=== PATIENT | female | born 1965 | race Hispanic/Latino ===

== ENCOUNTER 2021-08-29 07:26 | Emergency (ER) | payer SELFPAY ==
[2021-08-29] VITALS (17 sets, daily range): BP systolic 141–173; BP diastolic 71–95; PULSE 52–74; RESP 18; TEMP 36.7; O2SAT 97–99; BMI 30.7
--- NOTE | 2021-08-29 07:47 | DI.RAD.S_ITS ---
PROCEDURE: XR CHEST 1V INDICATIONS: lightheaded, flank pain TECHNIQUE: One view of the chest was acquired. COMPARISON: None. FINDINGS: Surgical changes and devices: None. Lungs and pleura: Lungs are clear. No pleural effusions or pneumothorax. Mediastinum: Mediastinal contours appear normal. Mild cardiomegaly. Bones and chest wall: No suspicious bony lesions. Overlying soft tissues appear unremarkable. IMPRESSION: Mild cardiomegaly. Dictated by: Ernesto Cueto M.D. on 08/29/2021 at 8:14 Approved by: Ernesto Cueto M.D. on 08/29/2021 at 8:15
--- NOTE | 2021-08-29 07:51 | ED.ABDPAIN ---
HPI - Abdominal Pain General Chief Complaint: Dizziness Stated Complaint: Dizzy, sweaty, pain in back Time Seen by Provider: 08/29/21 07:29 Source: patient Mode of arrival: Ambulatory Limitations: no limitations History of Present Illness HPI narrative: This is a 56-year-old female comes emergency department with complaint of left flank pain that wraps around to the right front. Patient states that it started yesterday she took some Aleve but states it was not as intense. Today she was at work she felt like she needed to have a bowel movement and when she went to the bathroom she did have 1 she states it was normal at was not black or bloody. Patient states that when she went to get up she felt lightheaded sort of dizzy she got a little sweaty. She states she did not pass out. But did sit down on the floor. She denies any chest pain or pressure. She denies any shortness of breath. She states the left flank pain is become significantly more intense after her bowel movement. She noted that her urine was quite dark. She denies any dysuria urgency or frequency. Patient states that the pain also seems to be in her left buttock and when she tries to straight her leg completely it makes her symptoms worse. Patient denies similar symptoms in the past. She states she has a history of hypertension. She denies any other known medical issues. She has had her thyroid removed in a in the past. No tobacco, no alcohol or illicit. Patient was at work today at [employer]. Related Data Previous Rx's Medication Instructions Recorded cyclobenzaprine 10 mg tablet 10 mg PO TID PRN #10 tab 08/29/21 Allergies Allergy/AdvReac Type Severity Reaction Status Date / Time No Known Drug Allergies Allergy Verified 08/29/21 08:18 Review of Systems Review of Systems ROS Unobtainable: All systems reviewed & are unremarkable except as noted in HPI and below Patient History Social History Smoking Status: Never smoker Exam Narrative Exam Narrative: GENERAL: Alert and oriented x three, female in mild distress. HEENT: Head normocephalic, atraumatic, EOMI, pupils reactive, face symmetric, moist mucous membranes NECK: Supple, full range of motion CARDIOVASCULAR: Regular rate and rhythm without murmurs, rubs or gallops. RESPIRATORY: Breath sounds equal bilaterally, no wheezes rales or rhonchi. ABDOMEN: Soft, nontender. Normoactive bowel sounds all 4 quadrants. No guarding or rebound, rigidity, no mass, no bruit. : No CVA tenderness BACK: No cervical, thoracic or lumbar vertebral point tenderness. Patient has mildly decreased range of motion. Patient is tender in the left piriformis she has increased pain with sitting up and rotating off the bed and straightening her leg. Muscle strength is 5/5 in lower extremities, DTRs are 2/4 and lower extremities. Dorsalis pedis and tibialis pulses are 2+ and lower extremities. Sensation is intact in the lower extremities. EXTREMITIES: Normal range of motion, no edema. Neurovascularly intact NEUROLOGICAL: Cranial nerves II through XII grossly intact. Moving all extremities SKIN: Warm, dry, no petechiae, no rashes or lesions. Initial Vital Signs Initial Vital Signs: Vital Signs Pulse Rate 74 08/29/21 07:37 Pulse Oximetry 98 08/29/21 07:37 Course Orders Ordered: Discontinued Medications Sodium Chloride (Normal Saline 0.9%) 1,000 mls @ 1,000 mls/hr IV BOLUS ONE Stop: 08/29/21 08:45 Last Infusion: 08/29/21 09:51 Dose: 0 mls/hr Documented by: Admin: 08/29/21 08:18 Dose: 1,000 mls/hr Documented by: AARON Ketorolac Tromethamine (Ketorolac 30 Mg/Ml Vial) 15 mg IV NOW ONE Stop: 08/29/21 07:48 Last Admin: 08/29/21 08:19 Dose: 15 mg Documented by: AARON Ondansetron HCl (Ondansetron 4 Mg/2 Ml Inj) 4 mg IV Q6HR PRN PRN Reason: Nausea And Vomiting Last Admin: 08/29/21 08:19 Dose: 4 mg Documented by: AARON Reevaluation(s) Reevaluation #1: 56-year-old female on recheck patient's symptoms completely resolved with Toradol she feels significantly better. Reviewed her labs and imaging today. Because she did have some EKG changes and felt a little sweaty and lightheaded a repeat troponin was included. Time: 09:50 Vital Signs Vital signs: Vital Signs - 8 hr 08/29/21 07:37 08/29/21 07:38 08/29/21 07:48 Temperature 98.0 F Pulse Rate 74 72 72 Respiratory Rate 18 Blood Pressure 173/91 H 173/91 H Pulse Oximetry 98 98 98 08/29/21 07:52 08/29/21 08:04 08/29/21 08:05 Temperature Pulse Rate 61 67 66 Respiratory Rate Blood Pressure 141/87 H 163/95 H Pulse Oximetry 99 97 98 08/29/21 08:30 08/29/21 08:31 Temperature Pulse Rate 57 L 60 Respiratory Rate Blood Pressure 142/71 H Pulse Oximetry 98 97 MDM - Abdominal Pain Lab Data Result diagrams: 08/29/21 07:49 08/29/21 07:49 Labs: Lab Results 08/29/21 08/29/21 08/29/21 Range/Units 07:49 07:49 07:49 WBC 4.2 L (4.5-11.0) X10^3/uL RBC 5.98 H (4.0-5.2) X10^6/uL Hgb 13.1 (12.0-16.0) g/dL Hct 41.7 (36-46) % MCV 69.7 L (80-100) fL MCH 22.0 L (26-34) PG MCHC 31.5 (30-36) % RDW 14.5 (11.6-14.8) % Plt Count 271 (150-400) X10^3/uL Neut % (Auto) 63.9 (50-75) % Lymph % (Auto) 25.4 (25-40) % Gates % (Auto) 6.7 (3-14) % Eos % (Auto) 3.5 (2-4) % Baso % (Auto) 0.5 (0-2) % Neut # (Auto) 2700 (9334-7091) /uL Lymph # (Auto) 1100 (6065-5329) /uL Gates # (Auto) 300 (0-900) /uL Eos # (Auto) 100 (0-450) /uL Baso # (Auto) 0 (0-100) /uL RBC Morphology Not Reportable Hypochromasia 1+ H Microcytosis 1+ H Sodium 141 (137-145) mmol/L Potassium 3.8 (3.4-5.1) mmol/L Chloride 104 (98-107) mmol/L Carbon Dioxide 28 (22-32) mmol/L BUN 14 (7-17) mg/dL Creatinine 0.61 (0.52-1.04) mg/dL Estimated GFR > 60.0 (>60) mL/min BUN/Creatinine Ratio 23.0 H (6-22) Glucose 94 (70-100) mg/dL Calcium 9.3 (8.4-10.2) mg/dL Total Bilirubin 0.3 (0.2-1.3) mg/dL AST 23 (14-36) IU/L ALT 17 (<35) IU/L Alkaline Phosphatase 110 (38-126) U/L Troponin I < 0.012 (0.01-0.034) ng/mL Total Protein 7.2 (6.3-8.2) g/dL Albumin 4.3 (3.5-5.0) g/dL Globulin 2.9 (1.7-4.1) g/dL Albumin/Globulin Ratio 1.5 (1.0-2.8) Lipase 106 (23-300) U/L 08/29/21 Range/Units 09:55 WBC (4.5-11.0) X10^3/uL RBC (4.0-5.2) X10^6/uL Hgb (12.0-16.0) g/dL Hct (36-46) % MCV (80-100) fL MCH (26-34) PG MCHC (30-36) % RDW (11.6-14.8) % Plt Count (150-400) X10^3/uL Neut % (Auto) (50-75) % Lymph % (Auto) (25-40) % Gates % (Auto) (3-14) % Eos % (Auto) (2-4) % Baso % (Auto) (0-2) % Neut # (Auto) (9135-7490) /uL Lymph # (Auto) (2714-3877) /uL Gates # (Auto) (0-900) /uL Eos # (Auto) (0-450) /uL Baso # (Auto) (0-100) /uL RBC Morphology Hypochromasia Microcytosis Sodium (137-145) mmol/L Potassium (3.4-5.1) mmol/L Chloride (98-107) mmol/L Carbon Dioxide (22-32) mmol/L BUN (7-17) mg/dL Creatinine (0.52-1.04) mg/dL Estimated GFR (>60) mL/min BUN/Creatinine Ratio (6-22) Glucose (70-100) mg/dL Calcium (8.4-10.2) mg/dL Total Bilirubin (0.2-1.3) mg/dL AST (14-36) IU/L ALT (<35) IU/L Alkaline Phosphatase (38-126) U/L Troponin I < 0.012 (0.01-0.034) ng/mL Total Protein (6.3-8.2) g/dL Albumin (3.5-5.0) g/dL Globulin (1.7-4.1) g/dL Albumin/Globulin Ratio (1.0-2.8) Lipase (23-300) U/L Point of care testing: Urine Dip Bedside Urine Glucose Negative Bedside Urine Bilirubin - Negative Bedside Urine Ketone - Negative Urine Specific [place] 1.015 Bedside Urine Occult Blood - Negative Bedside Urine pH 7.0 Bedside Urine Protein - Negative Bedside Urine Urobilinogen - Negative Bedside Urine Nitrite - Negative Bedside Urine Leukocytes - Negative Esterase Imaging Data CT scan - abdomen/pelvis: Radiologist's Impression: [address] [id number] Scan ReportSigned Patient: Shaye Lowry R#: [id number]: 1965Acct:[id number]/Sex: 56 / FDate of Service: 08/29/21Loc: EDAccession Number: [id number] Procedure: CT kidney ureter bladder (KUB) Ordering Provider: Katharine Nova D.O. PROCEDURE: CT KIDNEY URETER BLADDER (KUB) INDICATIONS: left flank pain, hip pain TECHNIQUE: Axial sections were acquired from the lung bases to the pubic symphysis. Coronal and sagittal reformats were performed. For radiation dose reduction, the following was used: automated exposure control, adjustment of mA and/or kV according to patient size. COMPARISON: [facility], CR, XR CHEST 1V, 08/29/2021, 7:52. FINDINGS: Image quality: Excellent. Lung bases: Unremarkable. Heart: Mild cardiomegaly. URINARY: Right Kidney: No stones or hydronephrosis. Right Ureter: No hydroureter. Left Kidney: No stones or hydronephrosis. Left Ureter: No hydroureter. Bladder: Normal wall thickness. No stones. ABDOMEN: Liver: Unremarkable. Gallbladder: Unremarkable. Biliary ducts: Unremarkable. Pancreas: Unremarkable. Spleen: Unremarkable. Adrenal Glands: Unremarkable. Stomach and Bowel: Low rectal surgical al. Distal rectal wall thickening. Fatty change in the wall of the cecum, likely representing sequelae of a inflammation. Peritoneum: No abnormal intraperitoneal fluid. No free air. Ventral Wall: No hernia. Abdominal Nodes: No enlarged retroperitoneal or mesenteric lymph nodes. Vessels: Aorta and inferior vena cava are normal in size. PELVIS: Pelvic Organs: Unremarkable. Pelvic Nodes: Unremarkable. Miscellaneous: No inguinal hernias are seen. Bones: No lytic or blastic bony lesions. No compression fractures. Mild lumbar degenerative change. IMPRESSION: 1. No evidence of renal stone, ureteral stone, or hydronephrosis. 2. Low rectal surgical al, diffuse rectal wall thickening. 3. No evidence of acute abdominal process. Dictated by: Ernesto Cueto M.D. on 08/29/2021 at 8:09 Approved by: Ernesto Cueto M.D. on 08/29/2021 at 8:14 Chest x-ray: Radiologist's Impression: [address] [id number] ReportSigned Patient: Shaye Lowry VMR#: [id number]: 1965Acct:[id number]/Sex: 56 / FDate of Service: 08/29/21Loc: EDAccession Number: [id number] Procedure: XR chest 1V Ordering Provider: Katharine Nova D.O. PROCEDURE: XR CHEST 1V INDICATIONS: lightheaded, flank pain TECHNIQUE: One view of the chest was acquired. COMPARISON: None. FINDINGS: Surgical changes and devices: None. Lungs and pleura: Lungs are clear. No pleural effusions or pneumothorax. Mediastinum: Mediastinal contours appear normal. Mild cardiomegaly. Bones and chest wall: No suspicious bony lesions. Overlying soft tissues appear unremarkable. IMPRESSION: Mild cardiomegaly. Dictated by: Ernesto Cueto M.D. on 08/29/2021 at 8:14 Approved by: Ernesto Cueto M.D. on 08/29/2021 at 8:15 ECG Data Attestation: I personally reviewed and interpreted this ECG as follows: Prior ECG tracings: not available for review Interpretation: Sinus rhythm, T-wave abnormality, patient has a rate of 61 CO 148, QRS 86 and QTC of 420. T-waves do appear changed at V2 through V5. Patient does not have any priors available. EKG shows rate of 61 CO 148 QRS 86 and QTC of 420. Continued T-wave changes with no new changes from prior today. MDM Narrative Medical decision making narrative: This is a 56-year-old female comes in with complaint of left back pain that after further discussion is more buttock pain radiating downwards that is worsened with movement. Patient did get dizzy sort of lightheaded a little bit sweaty as she was getting up off the toilet. She had a normal bowel movement at that time. Patient's EKG shows some nonspecific changes she has never had any chest pain or shortness of breath on her symptoms were significantly improved with Toradol. She has good pulses bilaterally, no pulsatile mass or bruit. Patient troponin x2 is negative and she feels significantly better here in the department. She did have CT abdomen pelvis as well as chest x-ray and her other labs appear to be reassuring. Patient does have follow-up in [place] and does have a crm business analyst there that she can follow-up with, she was encouraged to return if she has any new chest pain, shortness of breath or other changes. Discharge Plan Departure Patient Disposition: Home Clinical Impression: Acute left-sided back pain Instructions: DI for Back Pain With Sciatica Activity Restrictions/Additional Instructions: Your labs and imaging today are reassuring but your EKGs do show some atypical findings. I would recommend follow-up with primary care in [place] for stress testing at some time. A copy of your EKGs are included. Your CT imaging also shows some rectal thickening if you have not had a colonoscopy in the last several years you should have one performed. Included is referral for General surgery for colonoscopy. Your exam findings today do seem most consistent with muscular cause of her symptoms. You may take Tylenol up to a 1000 mg and or ibuprofen up to 800 every 8 hours. You may also take a muscle relaxer in addition. This medication can make you sleepy so do not drive, perform hazardous activities or make any major decisions while taking this. [facility] Return for new or worsening symptoms, lightheadedness or passing out, sweatiness, new chest pain or shortness of breath, persistent nausea or vomiting, new numbness, tingling or weakness in her extremities, loss of bowel or bladder control or other new or concerning symptoms. Prescriptions: New cyclobenzaprine 10 mg tablet 10 mg PO TID PRN (Reason: muscle spasm) Qty: 10 RF: 0
--- NOTE | 2021-08-29 07:58 | DI.CT.S_ITS ---
PROCEDURE: CT KIDNEY URETER BLADDER (KUB) INDICATIONS: left flank pain, hip pain TECHNIQUE: Axial sections were acquired from the lung bases to the pubic symphysis. Coronal and sagittal reformats were performed. For radiation dose reduction, the following was used: automated exposure control, adjustment of mA and/or kV according to patient size. COMPARISON: [facility], CR, XR CHEST 1V, 08/29/2021, 7:52. FINDINGS: Image quality: Excellent. Lung bases: Unremarkable. Heart: Mild cardiomegaly. URINARY: Right Kidney: No stones or hydronephrosis. Right Ureter: No hydroureter. Left Kidney: No stones or hydronephrosis. Left Ureter: No hydroureter. Bladder: Normal wall thickness. No stones. ABDOMEN: Liver: Unremarkable. Gallbladder: Unremarkable. Biliary ducts: Unremarkable. Pancreas: Unremarkable. Spleen: Unremarkable. Adrenal Glands: Unremarkable. Stomach and Bowel: Low rectal surgical al. Distal rectal wall thickening. Fatty change in the wall of the cecum, likely representing sequelae of a inflammation. Peritoneum: No abnormal intraperitoneal fluid. No free air. Ventral Wall: No hernia. Abdominal Nodes: No enlarged retroperitoneal or mesenteric lymph nodes. Vessels: Aorta and inferior vena cava are normal in size. PELVIS: Pelvic Organs: Unremarkable. Pelvic Nodes: Unremarkable. Miscellaneous: No inguinal hernias are seen. Bones: No lytic or blastic bony lesions. No compression fractures. Mild lumbar degenerative change. IMPRESSION: 1. No evidence of renal stone, ureteral stone, or hydronephrosis. 2. Low rectal surgical al, diffuse rectal wall thickening. 3. No evidence of acute abdominal process. Dictated by: Ernesto Cueto M.D. on 08/29/2021 at 8:09 Approved by: Ernesto Cueto M.D. on 08/29/2021 at 8:14
[2021-08-29] MEDS: SODIUM CHLORIDE 0.9% 1,000 ML 1000 ML IV (08:18)
[2021-08-29] MEDS: KETOROLAC 30 MG/ML VIAL 15 MG IV (08:19)
[2021-08-29] MEDS: ONDANSETRON 4 MG/2 ML INJ IV (08:19)
[2021-08-29 08:59] LABS: Alanine Aminotransferase 17 IU/L (<35); Albumin 4.3 g/dL (3.5-5.0); Albumin Globulin Ratio 1.5 (1.0-2.8); Alkaline Phosphatase 110 U/L (38-126); Aspartate Aminotransferase 23 IU/L (14-36); Bilirubin Total 0.3 mg/dL (0.2-1.3); Blood Urea Nitrogen 14 mg/dL (7-17); Calcium 9.3 mg/dL (8.4-10.2); Carbon Dioxide 28 mmol/L (22-32); Chloride 104 mmol/L (98-107); Estimated Glomerular Filt Rate > 60.0 mL/min (>60); Globulin 2.9 g/dL (1.7-4.1); Glucose 94 mg/dL (70-100); HEMOLYSIS < 15 (0-50); Potassium 3.8 mmol/L (3.4-5.1); Sodium 141 mmol/L (137-145); Total Protein 7.2 g/dL (6.3-8.2)
[2021-08-29 09:00] LABS: Add Manual Diff / Slide Review NO; Basophils Absolute Auto 0 /uL (0-100); Basophils Percent Auto 0.5 % (0-2); Eosinophils Absolute Auto 100 /uL (0-450); Eosinophils Percent Auto 3.5 % (2-4); Hematocrit 41.7 % (36-46); Hemoglobin 13.1 g/dL (12.0-16.0); Lipase 106 U/L (23-300); Lymphocytes Absolute Auto 1100 /uL (1100-4500); Lymphocytes Percent Auto 25.4 % (25-40); Mean Corpuscular HGB Conc 31.5 % (30-36); Mean Corpuscular Volume 69.7 fL (80-100); Monocytes Absolute Auto 300 /uL (0-900); Monocytes Percent Auto 6.7 % (3-14); Neutrophils Absolute Auto 2700 /uL (1500-7000); Neutrophils Percent Auto 63.9 % (50-75); Platelet Count 271 X10^3/uL (150-400); Red Blood Cell Count 5.98 X10^6/uL (4.0-5.2); Red Cell Distribution Width 14.5 % (11.6-14.8); White Blood Cell Count 4.2 X10^3/uL (4.5-11.0)
[2021-08-29 09:11] LABS: Troponin I < 0.012 ng/mL (0.01-0.034)
[2021-08-29 09:41] LABS: Hypochromasia 1+; Microcytosis 1+
[2021-08-29 10:30] LABS: Troponin I < 0.012 ng/mL (0.01-0.034)
== END 2021-08-29 11:14 | disposition home or self-care (01) ==
PROVIDERS: Emergency Provider Emergency Medicine
DX: M54.9 Dorsalgia, unspecified (principal); R10.9 Unspecified abdominal pain; M25.552 Pain in left hip; R42 Dizziness and giddiness
CPT/HCPCS: 36415; 71045; 74176; 80053; 81003; 83690; 84484; 85025; 93005; 96361; 96374; 96375; 99284; J1885; J2405